=== PATIENT | male | born 1975 | race Caucasian/White ===

== ENCOUNTER 2022-06-09 07:09 | Outpatient (CLI) | payer BC, SELFPAY | END 2022-06-09 07:10 | disposition home or self-care (01) | LOC: AMB 15:33 | PROVIDERS: Visit Provider Family Medicine | DX: S09.90XA Unspecified injury of head, initial encounter (principal); W18.30XA Fall on same level, unspecified, initial encounter; Y92.9 Unspecified place or not applicable | CPT/HCPCS: A0425; A0429 ==

== ENCOUNTER 2022-06-09 07:38 | Emergency (ER) | payer BC, SELFPAY ==
[2022-06-09 07:44] VITALS: BP 130/88; PULSE 77; RESP 18; TEMP 36.4; O2SAT 97; BMI 27.9
--- NOTE | 2022-06-09 07:48 | CRLHL7_ITS ---
For Patients: As a result of the Century Cures Act, medical imaging exams and procedure reports are released immediately into your electronic medical record. You may view this report before your referring provider. If you have questions, please contact your health care provider. Indication: Fall. Technique: Performed without IV contrast. Comparison: None available. Findings: No mass lesion or ventricular obstruction. No hemorrhage is identified. No brain edema or ischemia is localized on this exam. No encephalomalacia. No extra-axial fluid collections. The calvarium and skull base are unremarkable, with normal aeration of the visualized petrous temporal bones and paranasal sinuses on both sides. Impression: Negative CT head. Please note that all CT scans at this facility use dose modulation, iterative reconstruction, and/or weight-based dosing when appropriate to reduce radiation dose to as low as reasonably achievable. Dictated by Andrade Quinn MD @ 06/09/2022 8:21:24 AM (Electronically Signed)
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
== END 2022-06-09 09:26 | disposition home or self-care (01) ==
PROVIDERS: Emergency Provider Family Medicine; PCP Family Medicine; Referring Provider Family Medicine
DX: S09.90XA Unspecified injury of head, initial encounter (principal); S00.212A Abrasion of left eyelid and periocular area, initial encounter; W00.9XXA Unspecified fall due to ice and snow, initial encounter
CPT/HCPCS: 70450; 80048; 80076; 80143; 80306; 81001; 82077; 85025; 86140; 87086; 87635; 99284